=== PATIENT | female | born 1985 | race Caucasian/White ===

== ENCOUNTER 2017-04-14 09:54 | Inpatient (IN) | payer BC, OTHER ==
[2017-04-14] VITALS (29 sets, daily range): BP systolic 71–143; BP diastolic 31–91; PULSE 75–190; RESP 18–20; TEMP 98.2–101.3
[~2017-04-14 09:54] MED LIST: PRENTAB72 PO; RANI150 PO
--- NOTE | 2017-04-14 10:24 | PD ---
HPI Chief Complaint Possible labor Date Seen: Apr 14, 2017 Time Seen: 10:13 Travel History International Travel<30 Days: No Contact w/Intl Traveler<30Days: No Known Affected Area: No History of Present Illness Para: 2 : 3 History Past Medical History Medical History: Denies Significant Hx Obstetric History Obstetric History 2 prior vaginal deliveries care with Dr. Gil GBS negative Past Surgical History Surgical History: No Previous Surgery Family History Family History: Negative Allergies-Medications (Allergen,Severity, Reaction): Coded Allergies: No Known Allergies (Unverified , 02/11/13) Home Meds Reported Medications Ranitidine HCl (Zantac 150 Mg Tab)150 Mg [id number] Mg PO BID 09/28/14 Vit W/ Ferrous Fumara () Tab1 Po 02/11/13 Review of Systems Except as stated in HPI: all other systems reviewed are Neg Physical Exam Narrative GENERAL: Well-nourished, well-developed patient. SKIN: Warm and dry. HEAD: Normocephalic and atraumatic. EYES: No scleral icterus. No injection or drainage. ENT: No nasal drainage noted. Mucous membranes pink. Airway patent. NECK: Supple, trachea midline. No JVD. CARDIOVASCULAR: Regular rate and rhythm without murmurs, gallops, or rubs. RESPIRATORY: Breath sounds equal bilaterally. No accessory muscle use. ABDOMEN/GI: Abdomen soft, non-tender, bowel sounds present, no rebound, no guarding Gravid to [-] weeks size Fundal Height: [-35] GENITOURINARY: External Genitalia: intact and normal in appearance BUS glands: [Negative-] Cervix: [-] Dilatation: [2-] Effacement: [-70] Station: [--2] Presentation: [Vertex-] Membranes: [intact ] Uterine Contractions: [Irregular-] FHT's: Category: [1-] Baseline: [-] Reactive: [-] Variability: [-] Decels: [-] EXTREMITIES: No cyanosis or edema. BACK: Nontender without obvious deformity. No CVA tenderness. NEUROLOGICAL: Awake and alert. Motor and sensory grossly within normal limits. Five out of 5 muscle strength in all muscle groups. Normal speech. Data Data Vital Signs Reviewed: Yes MDM Medical Record Reviewed: Yes Narrative Course / MDM Assessment: 31-year-old multipara at 40 weeks and 5 days gestation with irregular contractions Plan: The pt will walk about and be rechecked. Thien Bailey MD Apr 14, 2017 10:23
[2017-04-14] MEDS ORDERED: LACTATED RINGER'S 1000 ML INJ 1,000 ML IV PRN (11:53)
[2017-04-14] MEDS ORDERED: LACTATED RINGER'S 1000 ML INJ 1,000 ML IV SCH (11:53)
--- NOTE | 2017-04-14 11:57 | PD.LABORPN ---
Subjective Subjective 31 yo mwf at 40 and 5/7 by good dates in prodromal labor with 3 80/-1 and BBOW cervix deviated to her left. EFW 6 -7 pelvis proven strip category one discusssed options and will arom today and anticipate Objective Objective Pelvic Exam: Cervix: [-] Dilatation: [-] Effacement: [-] Station: [-] Presentation: [-] Membranes: [intact or ruptured] Uterine Contractions: [-] FHT's: Category: [-] Baseline: [-] Reactive: [-] Variability: [-] Decels: [-] Kassandra Gil MD Apr 14, 2017 11:56
[2017-04-14] MEDS ORDERED: SODIUM CHLORID 0.9% 500 ML INJ 500 ML IV PRN (12:00)
[2017-04-14] MEDS ORDERED: ONDANSETRON HCL 4 MG/2 ML VIAL IV PRN (12:00)
[2017-04-14] MEDS ORDERED: CITRIC ACID-SODIUM CITRATE LIQ 30 ML UDC PO SCH (12:00)
[2017-04-14] MEDS ORDERED: LIDOCAINE HCL 1% 50 ML VIAL I-DERMAL PRN (12:00)
[2017-04-14] MEDS ORDERED: OXYTOCIN 30 UNITS-500ML PREMIX 500 ML IV ONE (12:00)
[2017-04-14] MEDS ORDERED: LIDOCAINE HCL 1% 50 ML VIAL INFIL PRN (12:00)
[2017-04-14] MEDS ORDERED: MINERAL OIL 10 ML VIAL TOPICAL PRN (12:00)
[2017-04-14] MEDS ORDERED: OXYTOCIN 30 UNITS-500ML PREMIX 500 ML IV SCH ×2 (12:00→17:15)
[2017-04-14] MEDS ORDERED: SODIUM CHLOR 0.9% 1000 ML INJ 1,000 ML IV PRN (12:13)
[2017-04-14 12:46] LABS: BLOOD, URINE SMALL (NEG); COMMENT (UR) CULT NOT INDICATED; CULTURE IF INDICATED CULT NOT INDICATED; GLUCOSE,URINE NEG (NEG); KETONE, URINE NEG (NEG); MUCUS URINE FEW /lpf (OCC); NITRITE,URINE NEG (NEG); PH, URINE 6.5 (5.0-8.5); SQUAMOUS EPITHELIAL CELL URINE 1 /hpf (0-5); URINE COLOR YELLOW (YELLW/STRAW)
[2017-04-14 12:47] LABS: AUTOMATED NEUTROPHIL # 14.2 TH/MM3 (1.8-7.7); BASOPHIL # 0.1 TH/MM3 (0-0.2); BASOPHIL % 0.4 % (0.0-2.0); EOSINOPHIL # 0.1 TH/MM3 (0-0.4); EOSINOPHIL % 0.4 % (0.0-4.0); HEMATOCRIT 41.3 % (35.0-46.0); HEMO FLAGS DIFF FINAL; LYMPHOCYTE # 2.3 TH/MM3 (1.0-4.8); MEAN CELL VOLUME 94.1 FL (80.0-100.0); MEAN CORPUSCULAR HEMOGLOBIN 31.5 PG (27.0-34.0); MEAN CORPUSCULAR HGB CONC 33.4 % (32.0-36.0); MONO % 6.5 % (0.0-8.0); NEUT % 79.7 % (16.0-70.0); PLATELET COUNT 205 TH/MM3 (150-450); RED BLOOD COUNT 4.39 MIL/MM3 (4.00-5.30); WHITE BLOOD COUNT 17.8 TH/MM3 (4.0-11.0)
[2017-04-14] MEDS ORDERED: fentaNYL 2MCG-BUPIV 0.125% INJ 100 ML ONE (14:01)
[2017-04-14] MEDS ORDERED: LIDOCAINE HCL 1% 20 ML VIAL I-DERMAL PRN (15:15)
[2017-04-14] MEDS ORDERED: LIDOCAINE HCL 1% 30 ML VIAL I-DERMAL PRN (15:15)
[2017-04-14] MEDS ORDERED: LIDOCAINE HCL 1% 20 ML VIAL INFIL PRN (15:15)
[2017-04-14] MEDS ORDERED: DO NOT ADMINISTER ANTICOAGULANTS PRN (15:45)
[2017-04-14] MEDS ORDERED: ePHEDrine/NS 25 MG/5 ML SYR IV PRN (15:45)
[2017-04-14] MEDS ORDERED: NO SYSTEM NARCOTICS PRN (15:45)
[2017-04-14] MEDS ORDERED: fentaNYL 2MCG-BUPIV 0.125% 100 ML EPIDURAL SCH (15:45)
[2017-04-14] MEDS ORDERED: DIPHTH/TETANUS/ACEL PERTUSSIS (BOOSTER) 0.5 ML VIAL/PFS IM ONE (16:00)
[2017-04-14] MEDS ORDERED: MEASLES, MUMPS, RUBELLA VACCINE 0.5 ML VIAL SQ ONE (16:00)
--- NOTE | 2017-04-14 17:07 | PD.OB.DELI ---
Anesthesia: Epidural Episiotomy: None Vaginal Delivery: Normal Presentation: Occiput anterior Nuchal Cord: x1 Delayed cord clamping (45 sec): Yes : Male One Minute : 8 Five Minute : 9 Weight: 7 Placenta: Spontaneous delivery Laceration: No lacerations Kassandra Gil MD Apr 14, 2017 17:07
[2017-04-14] MEDS ORDERED: ONDANSETRON ODT 4 MG TAB PO PRN (17:15)
[2017-04-14] MEDS ORDERED: WITCH HAZEL 50%/GLYCERIN 12.5% 40 PAD JAR TOPICAL PRN (17:15)
[2017-04-14] MEDS ORDERED: ALUMINUM/MAGNESIUM/SIMETH 30 ML CUP PO PRN (17:15)
[2017-04-14] MEDS ORDERED: ACETAMINOPHEN 325 MG TAB PO PRN (17:15)
[2017-04-14] MEDS ORDERED: BENZOCAINE 20% TOPICAL SPRAY 60 ML CAN TOPICAL PRN (17:15)
[2017-04-14] MEDS ORDERED: ZOLPIDEM TARTRATE 5 MG TAB PO PRN (17:15)
[2017-04-14] MEDS ORDERED: DOCUSATE SODIUM 50 MG/SENNA 8.6 MG TAB PO PRN (17:15)
[2017-04-14] MEDS: IBUPROFEN 600 MG TAB PO PRN (18:20)
[2017-04-14] MEDS: SODIUM CHLORIDE 0.9% FLUSH 10 ML FLUSH IV FLUSH PRN (19:32)
[2017-04-14] MEDS ORDERED: MEPERIDINE HCL 25 MG/ML VIAL IM PRN (20:15)
[2017-04-14] MEDS: ceFAZolin 1,000 MG/NS 100 ML IV SCH ×2 (20:30)
[2017-04-14] MEDS ORDERED: SODIUM CHLORIDE 0.9% FLUSH 10 ML FLUSH IV FLUSH SCH (21:00)
[2017-04-15] MEDS: SODIUM CHLORIDE 0.9% FLUSH 10 ML FLUSH IV FLUSH PRN (03:26)
[2017-04-15] MEDS: ceFAZolin 1,000 MG/NS 100 ML IV SCH ×4 (03:26→12:00)
[2017-04-15 04:30] VITALS: TEMP 98.5
--- NOTE | 2017-04-15 07:46 | HHI.OB ---
Subjective Post Day: 1 Remarks feeling much better; lochia light, cramping minimal, tolerating diet Objective Vitals/I&O Vital Signs Date Time Temp Pulse Resp B/P Pulse Ox O2 Delivery O2 Flow Rate FiO2 04/15/17 04:30 98.5 04/14/17 20:00 99.5 04/14/17 20:00 123 18 97/52 04/14/17 19:00 100.7 04/14/17 19:00 135 104/66 04/14/17 19:00 18 04/14/17 18:46 139 97/47 04/14/17 18:31 129 141/69 04/14/17 18:23 168 130/91 04/14/17 18:14 101.3 04/14/17 18:01 123 129/77 04/14/17 17:45 113 118/65 04/14/17 17:45 18 04/14/17 17:30 114 97/62 04/14/17 17:29 18 04/14/17 17:22 100.6 04/14/17 17:17 127 105/84 04/14/17 17:16 188 71/31 04/14/17 17:05 20 04/14/17 17:01 190 04/14/17 16:46 97 120/68 04/14/17 16:45 106 04/14/17 16:30 94 111/67 04/14/17 16:15 112/64 04/14/17 16:15 104 04/14/17 16:15 18 04/14/17 16:00 99 103/73 04/14/17 15:45 96 110/63 04/14/17 15:30 100 113/67 04/14/17 15:15 105 04/14/17 15:15 98.5 18 04/14/17 15:15 95 90/52 04/14/17 15:05 90 04/14/17 15:00 89 04/14/17 15:00 92 116/65 04/14/17 13:03 81 108/49 04/14/17 12:53 104 143/89 04/14/17 12:42 98.2 04/14/17 12:13 75 116/74 Objective Remarks GENERAL: Well-nourished, well-developed patient. infant. CARDIOVASCULAR: Regular rate and rhythm without murmurs, gallops, or rubs. RESPIRATORY: Breath sounds equal bilaterally. No accessory muscle use. ABDOMEN/GI: Abdomen soft, non-tender. Fundus: Firm, non-tender at umbilicus. GENITOURINARY: Light bleeding. EXTREMITIES: No cyanosis or edema, non-tender, without signs of DVT. Medications and IVs Current Medications Medications (Trade) Dose Ordered Sig/Eligio Route Start Time Stop Time Status Last Admin (NS Flush) 2 ml BID IV FLUSH 04/14/17 21:00 (NS Flush) 2 ml UNSCH PRN IV FLUSH 04/14/17 17:15 04/15/17 03:26 (Tylenol) 650 mg Q4H PRN PO 04/14/17 17:15 (Motrin) 600 mg Q6H PRN PO 04/14/17 17:15 04/14/17 18:20 (Americaine 20% Top Spr) 1 spray Q4H PRN TOPICAL 04/14/17 17:15 04/14/17 20:29 (Tucks Pads) 1 applic QID PRN TOPICAL 04/14/17 17:15 04/14/17 20:29 (Bernie-Colace) 2 tab Q12H PRN PO 04/14/17 17:15 (Ambien) 5 mg HS PRN PO 04/14/17 17:15 (Mag-Al Plus Susp Liq) 15 ml Q8H PRN PO 04/14/17 17:15 Ondansetron HCl 4 mg 4 mg Q6H PRN PO 04/14/17 17:15 04/14/17 18:30 (Ancef Inj/NS Inj) 100 ml @ 200 mls/hr Q8H IV 04/14/17 20:00 04/15/17 12:29 04/15/17 03:26 Assessment/Plan Problem List: (1) (normal spontaneous vaginal delivery) Assessment and Plan PPD#1 routine supportive care support d/c planning for tmrw Discharge Planning routine Daniella Davis MD Apr 15, 2017 07:46
[2017-04-15 08:00] VITALS: BP 103/63; PULSE 76; RESP 18; TEMP 97.8
[2017-04-15] MEDS: IBUPROFEN 600 MG TAB PO PRN ×2 (10:01→18:04)
[2017-04-15 19:28] VITALS: BP 100/66; PULSE 72; RESP 18; TEMP 98.4
--- NOTE | 2017-04-16 07:59 | HHI.DCPOC ---
Discharge Care Plan Report Symptoms to Your Doctor -Temperature above 100.5 degrees -Redness, of incision or excessive or foul smelling drainage -Unusual pain or calf pain -Increased vaginal bleeding -Painful or difficulty urinating -Feelings of extreme sadness or anxiety after 2 weeks Goals to Promote Your Health * To prevent worsening of your condition and complications * To maintain your health at the optimal level Directions to Meet Your Goals Take your medications as prescribed Follow your dietary instruction Follow activity as directed Ensure plenty of rest for recovery Drink fluids for hydration Keep your appointments as scheduled Take your immunizations and boosters as scheduled If your symptoms worsen call your PCP, if no PCP go to Urgent Care Center or Emergency Room Smoking is Dangerous to Your Health. Avoid second hand smoke Call the 24-hour crisis hotline for domestic abuse at Kassandra Gil MD Apr 16, 2017 07:59
--- NOTE | 2017-04-16 08:00 | HHI.DCPOC ---
Discharge Care Plan Report Symptoms to Your Doctor -Temperature above 100.5 degrees -Redness, of incision or excessive or foul smelling drainage -Unusual pain or calf pain -Increased vaginal bleeding -Painful or difficulty urinating -Feelings of extreme sadness or anxiety after 2 weeks Goals to Promote Your Health * To prevent worsening of your condition and complications * To maintain your health at the optimal level Directions to Meet Your Goals Take your medications as prescribed Follow your dietary instruction Follow activity as directed Ensure plenty of rest for recovery Drink fluids for hydration Keep your appointments as scheduled Take your immunizations and boosters as scheduled If your symptoms worsen call your PCP, if no PCP go to Urgent Care Center or Emergency Room Smoking is Dangerous to Your Health. Avoid second hand smoke Call the 24-hour crisis hotline for domestic abuse at Kassandra Gil MD Apr 16, 2017 08:00
[2017-04-16 09:15] VITALS: BP 96/55; PULSE 76; RESP 18; TEMP 97.9
[2017-04-16] MEDS: IBUPROFEN 600 MG TAB PO PRN (09:30)
== END 2017-04-16 10:21 | disposition home or self-care (01) | DRG 775 ==
LOC: HOBED 09:54 → H2EB 11:47 → H1EA 19:46
PROVIDERS: ADMIT Obstetrics & Gynecology; ATTEND Obstetrics & Gynecology
PROC: 10E0XZZ Delivery of Products of Conception, External Approach (ICD-10-PCS; principal; 2017-04-14)
DX: O48.0 Post-term pregnancy (principal); O69.81X0 Labor and delivery complicated by cord around neck, without compression, not applicable or unspecified; Z37.0 Single live birth; Z3A.40 40 weeks gestation of pregnancy
CPT/HCPCS: 81001; 85025; J0690; J2590; J7120